=== PATIENT | female | born 1945 | race Caucasian/White ===

== ENCOUNTER 2018-02-21 12:35 | Day surgery (SDC) | payer OTHER, SELFPAY ==
[2018-02-21] VITALS (8 sets, daily range): BP systolic 103–115; BP diastolic 52–70; PULSE 60–74; RESP 10–20; TEMP 35.9–37; O2SAT 93–96; BMI 32.5
[2018-02-21] MEDS: SODIUM CHLORIDE 0.9% 1,000 ML 42 ML IV (13:12)
--- NOTE | 2018-02-21 14:05 | PM.HP.1 ---
History of Present Illness Date Patient Seen: 02/21/18 Time Patient Seen: 14:05 Chief complaint: colonoscopy w/biopsy [phone] [id number] Narrative: Personal history of colon polyps currently asymptomatic Patient History Medical History Asthma (Acute) Surgical History History of third molar tooth extraction Status post surgery (09/08/14) Family & Social History Social History: household members spouse Meds Home Medications Medication Instructions Recorded Confirmed Type medroxyprogesterone 2.5 mg PO Q DAY #90 tab 12/14/15 Rx albuterol sulfate [Ventolin HFA] 1 puff INH QID #8 gm 05/03/17 Rx azithromycin [Zithromax] 250 mg PO QDAY #6 tab 05/03/17 Rx Allergies Allergy/AdvReac Type Severity Reaction Status Date / Time Penicillins [PENICILLINS] Allergy Mild HIVES Unverified 07/05/17 12:07 Exam Vital Signs (past 8 hours): - 02/21/18 12:59 Temperature 98.6 F Pulse Rate 74 Respiratory Rate 16 Blood Pressure 115/70 Pulse Oximetry 95 Oxygen Delivery Method Room Air Narrative Exam Narrative: Oropharynx free of lesions Chest clear to auscultation and percussion Cardiac exam reveals no S3 or murmur Assessment & Plan Plan: Assessment/Plan Narrative: Personal history of colon polyps. Need for follow-up colonoscopy. Risks, benefits, and alternatives have been
--- NOTE | 2018-02-21 14:07 | PM.OP.ENDO ---
Operative Date/Time/Diagnoses Date of procedure: 02/21/18 Time of procedure: 14:07 Pre-op diagnosis: See indication and findings Procedure & Clinicians Study performed: Colonoscopy Same procedure as scheduled: Yes Indications: Personal history of colon polyps Surgeon: Vaishali Sinclair Procedure Notes Procedure in detail: After informed consent was obtained the patient was placed in left lateral decubitus position. The video colonoscope was introduced the rectum and slowly advanced to the cecum. On slow withdrawal mucosa was carefully examined. Preparation was good. The scope was removed. The patient tolerated the procedure well. Blood loss none Complications none Sedation Versed 8 mg fentanyl 100 mcg IV titration Total sedation time 17 min Findings 1. Scattered sigmoid diverticulosis 2. Otherwise negative colonoscopy to cecum Patient should have follow-up colonoscopy in 5 years.
[2018-02-21] MEDS: fentaNYL 250 MCG/5 ML INJ IV (14:30)
[2018-02-21] MEDS: MIDAZOLAM 5 MG/5 ML VIAL IV (14:31)
== END 2018-02-21 15:23 | disposition home or self-care (01) ==
PROVIDERS: Family Provider Internal Medicine; PCP Internal Medicine; Visit Provider Internal Medicine Gastroenterology
PROC: 0DJD8ZZ Inspection of Lower Intestinal Tract, Via Natural or Artificial Opening Endoscopic (ICD-10-PCS; CPT 45378; principal; 2018-02-21 14:00)
DX: Z86.010 Personal history of colon polyps (principal); J45.909 Unspecified asthma, uncomplicated; K57.30 Diverticulosis of large intestine without perforation or abscess without bleeding
CPT/HCPCS: G0105; J2250; J3010

== ENCOUNTER 2018-05-01 09:19 | Day surgery (SDC) | payer OTHER, SELFPAY ==
[2018-05-01 10:38] VITALS: BP 129/81; PULSE 62; RESP 18; TEMP 37.3; O2SAT 100; BMI 33.2
[2018-05-01] MEDS: PROPARACAINE 0.5% OPHTH SOL 2 DROPS EYE-OP (10:38)
--- NOTE | 2018-05-01 10:49 | PM.PREOP ---
Pre-operative Note Interval Note History & Physical reviewed/Exam performed by Physician: No Changes to H&P: No
[2018-05-01] MEDS: CATARACT EYE COMPOUND (10 DROPS/SYRINGE) 3 DROPS EYE-OP (10:50)
--- NOTE | 2018-05-01 10:50 | P.OP_ITS ---
Operative Date/Time/Diagnoses Pre-op diagnosis: Nuclear Cataract Left eye Post-op diagnosis: same Procedure & Clinicians Surgeon: Ish Silva Anesthesia Type: MAC +/- and Sedation Operative Notes Procedure in detail: Patient brought to the operating suite. Tetracaine drops placed in the left eye. Patient was prepped and draped in sterile manner. Wire lid speculum was placed in the eye. Betadine drops were placed on the eye. This was irrigated. Lidocaine jelly was placed on the eye. A paracentesis port was created with a side-port blade. 0.1 mL 1% preservative free lidocaine was injected into the anterior chamber. The anterior chamber was deepened with viscoelastic. 2.6 mm keratome was used to create a temporal clear corneal incision. Cystotome and Utrata forceps were used to create continuous tear capsulorrhexis. Balanced salt solution was used to hydro dissect the nucleus. The phacoemulsification handpiece was inserted and the nucleus was removed using the stop and chop technique. The irrigation aspiration handpiece was inserted and the remaining cortex was removed. Anterior chamber was deepened with viscoelastic. An Dumont ZCB00 intraocular lens with a power of 21.0 was injected into the capsular bag. Irrigation aspiration handpiece was inserted and the remaining viscoelastic was removed. Incision was hydrated with balanced salt solution and found to be leak free with pressure with Weck- Violette sponges. 0.1 mL Vigamox injected anterior chamber. 0.3 mL Kenalog 10 mg was injected subconjunctivally. Lid speculum was removed. The patient left the operating room in excellent condition. Complications: none Condition: stable Disposition: same day surgery
[2018-05-01] MEDS: PHENYLEPHRINE/LIDOCAINE VIAL (OR) 0.2 ML EYE-OP (11:05)
[2018-05-01] MEDS: MOXIFLOXACIN OPHTH DROPS 3 ML BOTTLE 2 DROPS INJ (11:06)
[2018-05-01] MEDS: TRIAMCINOLONE 50 MG/5 ML VIAL INJ (11:06)
[2018-05-01] MEDS: LIDOCAINE JELLY 2% 5 ML 1 APPLIC TOP (11:06)
[2018-05-01] MEDS: CHONDROIDTIN/SOD HYALURONATE 1.05 ML SYRINGE INTRAOCULA (11:06)
[2018-05-01] MEDS: BALANCED SALT IRRIG SOLN NO.2 500 ML, EPINEPHrine 1 MG IRR (11:07)
[2018-05-01] MEDS: TETRACAINE 0.5% OPHTH DROPS 4 ML 2 DROPS EYE-OP (11:07)
[2018-05-01 11:19] VITALS: BP 137/85; PULSE 57; RESP 14; TEMP 36.8; O2SAT 100
== END 2018-05-01 11:49 | disposition home or self-care (01) ==
PROVIDERS: Family Provider Internal Medicine; PCP Internal Medicine; Visit Provider Ophthalmology
DX: H25.12 Age-related nuclear cataract, left eye (principal)
CPT/HCPCS: J0171; J2250; J3301

== ENCOUNTER 2018-05-15 07:56 | Day surgery (SDC) | payer OTHER, SELFPAY ==
[2018-05-15 08:41] VITALS: PULSE 79; RESP 15; TEMP 36.2; O2SAT 97
[2018-05-15 08:43] VITALS: BMI 31.1
[2018-05-15] MEDS: PROPARACAINE 0.5% OPHTH SOL 2 DROPS EYE-OP (08:59)
[2018-05-15] MEDS: CATARACT EYE COMPOUND (10 DROPS/SYRINGE) 3 DROPS EYE-OP (09:02)
--- NOTE | 2018-05-15 09:33 | PM.PREOP ---
Pre-operative Note Interval Note History & Physical reviewed/Exam performed by Physician: No Changes to H&P: No
--- NOTE | 2018-05-15 09:33 | PM.OP.1 ---
Operative Date/Time/Diagnoses Pre-op diagnosis: Nuclear cataract right eye Procedure & Clinicians Procedure: Cataract Surgery Same procedure as scheduled: Yes Surgeon: Ish Silva Anesthesia Type: MAC +/- and Sedation Operative Notes Procedure in detail: Patient brought to the operating suite. Tetracaine drops placed in the right eye. Patient was prepped and draped in sterile manner. Wire lid speculum was placed in the eye. Betadine drops were placed on the eye. This was irrigated. Lidocaine jelly was placed on the eye. A paracentesis port was created with a side-port blade. 0.1 mL 1% preservative free lidocaine was injected into the anterior chamber. The anterior chamber was deepened with viscoelastic. 2.6 mm keratome was used to create a temporal clear corneal incision. Cystotome and Utrata forceps were used to create continuous tear capsulorrhexis. Balanced salt solution was used to hydro dissect the nucleus. The phacoemulsification handpiece was inserted and the nucleus was removed using the stop and chop technique. The irrigation aspiration handpiece was inserted and the remaining cortex was removed. Anterior chamber was deepened with viscoelastic. An Dumont ZCB00 intraocular lens with a power of 21.0 was injected into the capsular bag. Irrigation aspiration handpiece was inserted and the remaining viscoelastic was removed. Incision was hydrated with balanced salt solution and found to be leak free with pressure with Weck-Violette sponges. 0.1 mL Vigamox injected anterior chamber. 0.3 mL Kenalog 10 mg was injected subconjunctivally. Lid speculum was removed. The patient left the operating room in excellent condition. Complications: none Condition: stable Disposition: same day surgery
[2018-05-15] MEDS: MOXIFLOXACIN OPHTH DROPS 3 ML BOTTLE 2 DROPS INJ (09:44)
[2018-05-15] MEDS: PHENYLEPHRINE/LIDOCAINE VIAL (OR) 0.2 ML EYE-OP (09:44)
[2018-05-15] MEDS: TETRACAINE 0.5% OPHTH DROPS 4 ML 2 DROPS EYE-OP (09:45)
[2018-05-15] MEDS: CHONDROIDTIN/SOD HYALURONATE 1.05 ML SYRINGE INTRAOCULA (09:45)
[2018-05-15] MEDS: TRIAMCINOLONE 50 MG/5 ML VIAL INJ (09:45)
[2018-05-15] MEDS: LIDOCAINE JELLY 2% 5 ML 1 APPLIC TOP (09:45)
[2018-05-15] MEDS: BALANCED SALT IRRIG SOLN NO.2 500 ML, EPINEPHrine 1 MG IRR (09:46)
[2018-05-15 10:00] VITALS: BP 119/80; PULSE 62; RESP 15; TEMP 36.4; O2SAT 96
== END 2018-05-15 10:26 | disposition home or self-care (01) ==
PROVIDERS: PCP Internal Medicine; Visit Provider Ophthalmology
DX: H25.11 Age-related nuclear cataract, right eye (principal)
CPT/HCPCS: J0171; J2250; J3301

== ENCOUNTER → 2018-07-13 14:50 | Outpatient (CLI) | payer OTHER, SELFPAY ==
--- NOTE | 2018-07-13 | DI.MG.S_ITS ---
BILATERAL DIGITAL SCREENING MAMMOGRAM 3D/2D WITH CAD: 07/13/2018 CLINICAL: Routine screening. Family history of breast cancer. Comparison is made to exams dated: 02/25/2016 mammogram, 06/06/2014 mammogram, and 01/30/2012 mammogram - [facility]. There are scattered fibroglandular elements in both breasts. Current study was also evaluated with a Computer Aided Detection (CAD) system. No significant masses, calcifications, or other findings are seen in either breast. There has been no significant interval change. IMPRESSION: NEGATIVE There is no mammographic evidence of malignancy. A 1 year screening mammogram is recommended. This exam was interpreted at Station ID: [id number]. NOTE: For mammograms, a report in lay terms will be sent to the patient. Approximately 15% of breast malignancies will not be visualized mammographically. In the management of a palpable breast mass, a negative mammogram must not discourage biopsy of a clinically suspicious lesion. Electronically Signed By: Zena beckman/lenore:07/13/2018 16:35:05 letter sent: Normal Exam ACR BI-RADS Category 1: Negative 3341F
== END ==
PROVIDERS: PCP Internal Medicine; Visit Provider Internal Medicine
DX: Z12.31 Encounter for screening mammogram for malignant neoplasm of breast (principal); Z80.3 Family history of malignant neoplasm of breast
CPT/HCPCS: 77063; 77067

== ENCOUNTER → 2020-06-26 14:31 | Outpatient (CLI) | payer OTHER, SELFPAY ==
--- NOTE | 2020-06-26 14:33 | DI.MG.S_ITS ---
BILATERAL DIGITAL SCREENING MAMMOGRAM 3D/2D WITH CAD: 06/26/2020 CLINICAL: Routine screening. Family history of breast cancer. Comparison is made to exams dated: 07/13/2018 mammogram, 02/25/2016 mammogram, and 06/06/2014 mammogram - [facility]. There are scattered fibroglandular elements in both breasts. Current study was also evaluated with a Computer Aided Detection (CAD) system. There are benign calcifications in both breasts. No significant masses, calcifications, or other findings are seen in either breast. There has been no significant interval change. IMPRESSION: BENIGN There is no mammographic evidence of malignancy. A 1 year screening mammogram is recommended. This exam was interpreted at Station ID: [id number]. NOTE: For mammograms, a report in lay terms will be sent to the patient. Approximately 15% of breast malignancies will not be visualized mammographically. In the management of a palpable breast mass, a negative mammogram must not discourage biopsy of a clinically suspicious lesion. Electronically Signed By: Eduardo capmos/lenore:06/26/2020 16:17:05 letter sent: Normal Exam ACR BI-RADS Category 2: Benign Finding(s) 3342F
== END ==
PROVIDERS: PCP Internal Medicine; Referring Provider Internal Medicine; Visit Provider Internal Medicine
DX: Z12.31 Encounter for screening mammogram for malignant neoplasm of breast (principal)
CPT/HCPCS: 77063; 77067

== ENCOUNTER → 2022-12-06 14:48 | Outpatient (CLI) | payer OTHER, SELFPAY ==
--- NOTE | 2022-12-06 | DI.MG.S_ITS ---
BILATERAL DIGITAL SCREENING MAMMOGRAM 3D/2D WITH CAD: 12/06/2022 CLINICAL: Routine screening. Family history of breast cancer. Comparison is made to exams dated: 06/26/2020 mammogram, 07/13/2018 mammogram, and 02/25/2016 mammogram - [facility]. There are scattered areas of fibroglandular density in both breasts (category b / 25%-50% glandular tissue). Current study was also evaluated with a Computer Aided Detection (CAD) system. There are benign calcifications in both breasts. No significant masses, calcifications, or other findings are seen in either breast. There has been no significant interval change. IMPRESSION: BENIGN There is no mammographic evidence of malignancy. A 1 year screening mammogram is recommended. Based on the Tyrer Cuzick model (a risk assessment model) the patient's lifetime risk is 4.8% and her 10 year risk is 0.0%. According to the ACR, ACS, and NCCN guidelines, an annual breast MRI exam along with mammogram is recommended if the patient's lifetime risk is 20% or greater. This exam was interpreted at Station ID: [id number]. NOTE: For mammograms, a report in lay terms will be sent to the patient. Approximately 15% of breast malignancies will not be visualized mammographically. In the management of a palpable breast mass, a negative mammogram must not discourage biopsy of a clinically suspicious lesion. Electronically Signed By: Levy valentin/lenore:12/07/2022 16:37:49 letter sent: Normal Exam ACR BI-RADS Category 2: Benign Finding(s) 3342F
--- NOTE | 2022-12-06 | DI.RAD.S_ITS ---
Bone Density Report Name: DERIAN SANCHEZ Age: 77 Sex: Female Ethnicity: White Date of : 1945 Indication: osteopenia; Referring Provider: VANIA ROJAS Study: Bone densitometry was performed. Exam Date: December 06, 2022 Accession number: [id number] Bone Density: Region BMD T-score Z-score Classification AP Spine(L1, L2, L3) 0.728 -2.6 -0.2 Osteoporosis Femoral Neck (Left) 0.564 -2.6 -0.4 Osteoporosis Total Hip (Left) 0.643 -2.4 -0.6 Osteopenia Femoral Neck (Right) 0.598 -2.3 -0.1 Osteopenia Total Hip (Right) 0.671 -2.2 -0.4 Osteopenia Total Hip Mean 0.657 -2.3 -0.5 Osteopenia World Health Organization criteria for BMD impression classify patients as: Normal (T-score at or above -1.0), Osteopenia (T-score between -1.0 and -2.5), or Osteoporosis (T-score at or below -2.5). 10-year Fracture Risk: FRAX not reported because: Some T-score for Spine Total or Hip Total or Femoral Neck at or below -2.5 Previous Exams: -- Region Exam Age BMD T-score BMD Change BMD Change Date g/cm2 vs Baseline vs Previous -- AP Spine (L1-L3) 12/06/2022 77 0.728 -2.6 -0.172 (-19.1%)# -0.172 (-19.1%)# 02/25/2016 70 0.900 -1.1 Total Hip(Left) 12/06/2022 77 0.643 -2.4 -0.123 (-16.1%)# -0.123 (-16.1%)# 02/25/2016 70 0.767 -1.4 Total Hip(Right) 12/06/2022 77 0.671 -2.2 -0.107 (-13.8%)# -0.107 (-13.8%)# 02/25/2016 70 0.778 -1.3 -- *Denotes significance at 95% confidence level, LSC for AP Spine = 0.022 g/cm2, LSC for Total Hip = 0.027 g/cm2 # Denotes dissimilar scan types or analysis methods Impression: The patient has osteoporosis, based on the Total Spine T-score. No significant bone loss was observed. Discussion: INCREASED RISK OF FRACTURE. BONE DENSITY IS UNDESIRABLY LOW AT ONE OR MORE SKELETAL SITES, CONSISTENT WITH POSTMENOPAUSAL OSTEOPOROSIS. This patient's lowest T-score meets the World Health Organization's (WHO) criteria for osteoporosis at one or more sites (T-score -2.5 or below). In untreated patients, the risk of osteoporotic fracture increases approximately two-fold for each 1.0 SD decrease in T-score. Low bone density is not the only risk factor for fracture; also consider factors such as patient's age, frailty or poor health, risk of falling, risk of injury, previous osteoporotic fracture, family history of osteoporosis, cigarette smoking, low body weight, etc. Not everyone with low bone mineral density has osteoporosis; osteomalacia and other metabolic bone disorders should also be considered. Patients who have osteoporosis should be evaluated for specific diseases and conditions (secondary causes) that may cause or contribute to bone loss. The [place] [employer] (AACE) and National Osteoporosis Foundation (NOF) recommend pharmacologic intervention for all postmenopausal women whose T-score is in this range. The patient should follow a healthful lifestyle (good nutrition with adequate calcium and vitamin D, and appropriate weight-bearing exercise). Follow-Up: Consider a repeat BMD and Vertebral Fracture Assessment (VFA) exam in 2 years or sooner if medically necessary, to reassess this patient's status. Reported by: ANTHONY PEREZ M.D. on 12/06/2022 3:16:00 PM.
== END ==
PROVIDERS: PCP Internal Medicine; Referring Provider Internal Medicine; Visit Provider Internal Medicine
DX: Z12.31 Encounter for screening mammogram for malignant neoplasm of breast (principal); M81.0 Age-related osteoporosis without current pathological fracture; Z80.3 Family history of malignant neoplasm of breast; Z78.0 Asymptomatic menopausal state
CPT/HCPCS: 77063; 77067; 77080